=== PATIENT | female | born 1930 | race Caucasian/White ===

== ENCOUNTER 2017-04-02 10:37 | Inpatient (IN) | payer MEDICARE, OTHER ==
[~2017-04-02] VITALS: Ht 168.9 cm; Wt 45.8 kg
--- NOTE | 2017-04-02 15:35 | NUR ---
PT ADMITTED FROM [facility], VIA AMBULANCE, PT A/O X3, NO RESPIRATORY DISTRESS NOTED. NC AT 2L/MIN, RESPIRATIONS EVEN AND UNLABORED, PT WITH MULTIPLE BRUISING ON BILATERAL HANDS, LEFT AC REDNESS, SACRAL WOUND, PICTURES TAKEN. NO FAMILY AT BEDSIDE. FLU AND PNA VACCINE ON 01/25. F/C INTACT AND PATENT, KRISTIN YELLOW URINE. NASAL SWABS TAKEN.
[2017-04-02] MEDS ORDERED: METO-304 PO (16:29)
[2017-04-02] MEDS ORDERED: DIGO125T PO (16:29)
[2017-04-02] MEDS ORDERED: ATOR40TA PO (16:29)
[2017-04-02] MEDS ORDERED: VITA400C24 PO (16:29)
[2017-04-02] MEDS ORDERED: ASPI-612 PO (16:29)
[2017-04-02] MEDS ORDERED: ESTR1.5T5 PO (16:29)
[2017-04-02] MEDS ORDERED: CHOL10002 PO (16:29)
[2017-04-02] MEDS ORDERED: LEVO50TA8 PO (16:29)
[2017-04-02 16:52] VITALS: BP 109/48
--- NOTE | 2017-04-02 19:35 | NUR ---
Received pt sleeping comfortably in bed and easily arousable when called by name. AAO x3. On 2L O2 NC, tolerating well. No acute distress noted. No c/o pain or discomfort at this time. F/C noted, draining well with yellow colored urine, possible DC of F/C tomorrow as per Dr. Macias if pt does not need it. Safety measures maintained. Call light and personal belongings within reach. Will continue to monitor.
[2017-04-02 22:22] VITALS: BP 120/50
[2017-04-02] MEDS ORDERED: HYDROCODONE/APAP 5-325MG TABLET PO PRN (22:30)
[2017-04-02] MEDS ORDERED: HYDROCODONE/APAP 5-325MG TABLET ONE (23:09)
--- NOTE | 2017-04-03 05:46 | NUR ---
Pt slept comfortably t/o the night. C/o pain last night at the sacrum and was given [place]. Vital signs stable. On 2L O2 via NC. Safety measures maintained. Call light within reach. Will endorse to day shift RN. Continue to monitor.
--- NOTE | 2017-04-03 07:20 | NUR ---
RECEIVED REPORT FROM ECONOMIC SPECIALIST NURSE, PT RESTING COMFORTABLY IN BED, NO S/S OF PAIN, CALL LIGHT IN REACH, WILL CONTINUE TO MONITOR.
[2017-04-03 07:26] LABS: BASOPHILS # (AUTO) 0.1 K/uL (0.0-8.0); EOSINOPHILS # (AUTO) 0.1 K/uL (0.0-0.7); EOSINOPHILS % (AUTO) 1.2 % (0.0-7.0); HEMATOCRIT 26.8 % (37-47); HEMOGLOBIN 9.1 G/DL (12.0-16.0); LYMPHOCYTES # (AUTO) 0.8 K/UL (0.8-4.8); LYMPHOCYTES % (AUTO) 14.4 % (20.5-51.5); MEAN CORPUSCULAR HEMOGLOBIN 31.4 UUG (27.0-31.0); MEAN CORPUSCULAR HGB CONC 34 g/dL (32.0-37.0); MEAN CORPUSCULAR VOLUME 92.7 FL (81.0-99.0); MONOCYTES # (AUTO) 0.6 K/UL (0.1-1.30); NEUTROPHILS % (AUTO) 72.4 % (38.5-71.5); PLATELET COUNT (AUTO) 73 K/UL (150-450); RED BLOOD CELL COUNT(AUTO) 2.89 MIL/UL (4.2-5.4); WHITE BLOOD COUNT (AUTO) 5.6 K/UL (4.0-11.2)
[2017-04-03 07:41] LABS: DIGOXIN 1.5 ng/mL (0.9-2.0)
[2017-04-03 07:46] VITALS: BP 150/63
[2017-04-03 07:47] LABS: THYROID STIMULATING HORMONE 3.118 mIU/mL (0.358-3.740)
[2017-04-03 07:53] LABS: IRON, SERUM 32 ug/dL (50-175)
[2017-04-03 08:19] LABS: BAND % (MANUAL) 1 % (0-10); EOSINOPHILS % (MANUAL) 1 % (0-8); LYMPHOCYTES % (MANUAL) 16 % (20-40); MONOCYTES % (MANUAL) 11 % (2-10); NEUTROPHILS % (MANUAL) 71 % (42-75)
[2017-04-03 08:21] LABS: ALANINE AMINOTRANSFERASE 32 U/L (14-59); ALKALINE PHOSPHATASE 71 U/L (50-136); ASPARTATE AMINOTRANSFERASE 44 U/L (15-37); BILIRUBIN,TOTAL 1.3 mg/dL (0.2-1.0); CARBON DIOXIDE 28 mmol/L (21-32); CHLORIDE 104 mmol/L (98-107); CHOLESTEROL 102 mg/dL (<200); CREATININE 0.6 mg/dL (0.6-1.3); GLUCOSE 83 mg/dL (74-106); HDL CHOLESTEROL 69 mg/dL (40-60); PHOSPHOROUS 2.4 mg/dL (2.5-4.9); POTASSIUM 4.4 mmol/L (3.5-5.1); TOTAL PROTEIN, SERUM 5.6 g/dL (6.4-8.2); TRIGLYCERIDES 45 MG/DL (30-150); UREA NITROGEN, BLOOD 15 mg/dL (7-18)
[2017-04-03] MEDS: DIGOXIN 125 MCG TABLET PO SCH (08:55)
[2017-04-03] MEDS: LEVOTHYROXINE SODIUM 50 MCG TABLET PO SCH (08:55)
[2017-04-03] MEDS ORDERED: ASPIRIN 325 MG TABLET PO SCH (09:00)
--- NOTE | 2017-04-03 13:30 | NUR ---
PT RESTING COMFORTABLYM, NO C/O PAIN NO DISTRESS, CALL LIGHT IN REACH, WILL CONTINUE TO MONITOR PT.
[2017-04-03] MEDS ORDERED: NEUTRA PHOS PACKET PO ONE (16:15)
--- NOTE | 2017-04-03 16:47 | NUR ---
PT BECAME ARGUMENTATIVE AND REFUSED THE PERCOCET5/325 AND NEUTRASPHOS, PT REFUSED BOTH MEDS, PT PREVIOUSLY ASKED FOR PAIN MEDS. eNC PT TO TAKE THE MEDS BUT PT REFUSED STILL
--- NOTE | 2017-04-03 18:36 | NUR ---
PT RESTING IN BED, ASKED ABOUT HER VITAMINS, INFORMED HER SHE WOULD GET HER VITAMINS AT 2100 AND PAIN MEDS PRN, CALL LIGHT IN REACH, WILL ENDORSE TO MAP MOUNTER NURSE.
[2017-04-03] MEDS: OXYCODONE/APAP 5-325 MG TABLET PO PRN (19:34)
--- NOTE | 2017-04-03 20:00 | NUR ---
Received pt resting in bed and watching TV. AAO x3. C/o pain 6/10 on her sacrum. Will follow through with interventions. Dr. Colon and Dr. Macias talked to the patient. Dr. Macias ordered for tomlin catheter to be D/C tomorrow in morning shift. Will endorse to day shift RN. Pt on 2L O2 NC, tolerating well. No acute distress noted. Safety measures maintained. Call light within reach. Will continue to monitor.
[2017-04-03] MEDS ORDERED: ATORVASTATIN 40 MG TABLET PO SCH (21:00)
[2017-04-03 21:18] VITALS: BP 137/56
[2017-04-03] MEDS: CHOLECALCIFEROL 1,000 UNIT TABLET PO SCH (21:36)
[2017-04-03] MEDS: DOCUSATE SODIUM 100 MG CAPSULE PO SCH (21:36)
[2017-04-03] MEDS: VITAMIN E 400 UNITS CAPSULE PO SCH (21:36)
[2017-04-03] MEDS ORDERED: DOCUSATE SODIUM 100 MG CAPSULE PO ONE (21:38)
--- NOTE | 2017-04-04 05:38 | NUR ---
Pt slept comfortably t/o the night. On 2L O2 via NC. Cote catheter intact and draining well, to be discontinued today for morning shift. All needs attended to promptly. Safety measures maintained. Call light and personal belongings within reach. Will endorse to day shift RN. Continue to monitor.
[2017-04-04] MEDS: LEVOTHYROXINE SODIUM 50 MCG TABLET PO SCH (06:42)
--- NOTE | 2017-04-04 08:20 | NUR ---
PATIENT NOTED LYING IN BED WATCHING TV, COMPLAINTS OF PAIN 5/10, NO SIGNS OF DISTRESS NOTED, CALL LIGHT IN REACH, BED LOCKED AND IN LOWEST POSITION
[2017-04-04] MEDS: DIGOXIN 125 MCG TABLET PO SCH (08:57)
[2017-04-04] MEDS: OXYCODONE/APAP 5-325 MG TABLET PO PRN ×2 (08:59→21:02)
[2017-04-04 09:02] VITALS: BP 147/71
--- NOTE | 2017-04-04 11:00 | NUR ---
REAGAN CATHETER DISCONTINUED
--- NOTE | 2017-04-04 19:53 | NUR ---
MINIMAL URINE OUTPUT NOTED FROM PATIENT DURING SHIFT, DOCTOR NOBLE NOTIFIED WITH ORDERS FOR 1)BLADDER SCAN 2) IN AND OUT CATHETERIZATION STAT 3) FLOMAX 0.4 MG QHS. BLADDER SCAN SHOWED 523 ML, IN AND OUT CATHETERIZATION PERFORMED WITH 550 ML OF CLEAR STRAW COLORED URINE
[2017-04-04] MEDS ORDERED: TAMSULOSIN HCL 0.4 MG CAP.SR.24H ONE (20:19)
[2017-04-04 20:36] VITALS: BP 151/62
[2017-04-04] MEDS: TAMSULOSIN HCL 0.4 MG CAP.SR.24H PO SCH (21:00)
[2017-04-04] MEDS: VITAMIN E 400 UNITS CAPSULE PO SCH (21:00)
[2017-04-04] MEDS: FERROUS GLUCONATE 324 MG TABLET PO SCH (21:00)
[2017-04-04] MEDS: CHOLECALCIFEROL 1,000 UNIT TABLET PO SCH (21:01)
[2017-04-04] MEDS: DOCUSATE SODIUM 100 MG CAPSULE PO SCH (21:01)
[2017-04-04] MEDS: ATORVASTATIN 10 MG TABLET PO SCH (22:04)
[2017-04-04] MEDS ORDERED: ATORVASTATIN 10 MG TABLET ONE (22:16)
[2017-04-05] MEDS: LEVOTHYROXINE SODIUM 50 MCG TABLET PO SCH (07:01)
[2017-04-05 07:20] VITALS: BP 119/56
[2017-04-05] MEDS: OXYCODONE/APAP 5-325 MG TABLET PO PRN ×2 (07:44→22:01)
[2017-04-05] MEDS: FERROUS GLUCONATE 324 MG TABLET PO SCH ×2 (09:26→22:01)
[2017-04-05] MEDS: DIGOXIN 125 MCG TABLET PO SCH (09:26)
[2017-04-05] MEDS: FUROSEMIDE 20 MG TABLET PO SCH (09:26)
[2017-04-05] MEDS: MIRALAX 17 GM POWD.PACK PO SCH (09:27)
--- NOTE | 2017-04-05 11:30 | NUR ---
Pt. walking around unit with P.T. on R/A resting intermittently. Pt. c/o of sob at the end of walk 02 at 85%. 2L 02 applied with 02 saturation at 96% and patient with no complaints of sob. Pt walking to bathroom on R/A with O.T. and tolerating limited ADLs before complaining of nausea and had an emesis as well as episode of weakness. Pt. returned to [facility] and 2 l 02 applied. VS: bp- 109/46, hr- 82, 02 sat 92 %. PT. states that she thinks the emesis is from the pain pill she took earlier. All needs attened and pt. returned to bed. Pt. resting. Continue to monitor.
[2017-04-05 12:00] VITALS: BP 111/47
--- NOTE | 2017-04-05 16:16 | NUR ---
Pt. complained earlier in the shift about having postnasal drainage and difficulty chewing due to her underbite and also some coughing up food particle at times. Discussed food texture change. Pt. resting in bed and repositioned with 1 pers assist. Dressing to coccyx changed. Pt. assisted to bathroom with 1 pers assist. No acute distress noted.
[2017-04-05 20:36] VITALS: BP 131/55
[2017-04-05] MEDS: VITAMIN E 400 UNITS CAPSULE PO SCH (22:01)
[2017-04-05] MEDS: TAMSULOSIN HCL 0.4 MG CAP.SR.24H PO SCH (22:02)
[2017-04-05] MEDS: ATORVASTATIN 10 MG TABLET PO SCH (22:02)
[2017-04-05] MEDS: CHOLECALCIFEROL 1,000 UNIT TABLET PO SCH (22:02)
[2017-04-05] MEDS: DOCUSATE SODIUM 100 MG CAPSULE PO SCH (22:02)
[2017-04-06] MEDS: OXYCODONE/APAP 5-325 MG TABLET PO PRN (05:02)
[2017-04-06] MEDS: LEVOTHYROXINE SODIUM 50 MCG TABLET PO SCH (05:02)
--- NOTE | 2017-04-06 07:41 | NUR ---
PATIENT NOTED RESTING IN BED WITH EYES CLOSED, NO COMPLAINTS OF PAIN AT THIS TIME, NO SIGNS OF DISTRESS NOTED, CALL LIGHT IN REACH, BED LOCKED AND IN LOWEST POSITION, ALL NEEDS MET AT THIS TIME
[2017-04-06 08:29] LABS: BASOPHILS # (AUTO) 0.1 K/uL (0.0-8.0); EOSINOPHILS % (AUTO) 1.1 % (0.0-7.0); HEMATOCRIT 23.5 % (31.2-41.9); LYMPHOCYTES # (AUTO) 0.6 K/uL (20.0-40.0); LYMPHOCYTES % (AUTO) 14.6 % (20.5-51.5); MEAN CORPUSCULAR HEMOGLOBIN 31.4 uug (24.7-32.8); MEAN CORPUSCULAR HGB CONC 34 g/dL (32.3-35.6); MONOCYTES # (AUTO) 0.6 K/uL (2.0-10.0); MONOCYTES % (AUTO) 13.3 % (0.0-11.0); PLATELET COUNT (AUTO) 84 K/uL (179-408); RED BLOOD CELL COUNT(AUTO) 2.56 MIL/uL (3.63-4.92); WHITE BLOOD COUNT (AUTO) 4.3 K/uL (3.8-11.8)
[2017-04-06 08:50] LABS: ALANINE AMINOTRANSFERASE 34 U/L (14-59); ALKALINE PHOSPHATASE 82 U/L (50-136); ASPARTATE AMINOTRANSFERASE 45 U/L (15-37); BILIRUBIN,TOTAL 0.8 mg/dL (0.2-1.0); CARBON DIOXIDE 30 mmol/L (21-32); CHLORIDE 103 mmol/L (98-107); CREATININE 0.8 mg/dL (0.6-1.3); GLUCOSE 92 mg/dL (74-106); MAGNESIUM 1.9 mg/dL (1.8-2.4); PHOSPHOROUS 2.5 mg/dL (2.5-4.9); POTASSIUM 4.4 mmol/L (3.5-5.1); TOTAL PROTEIN, SERUM 5.3 g/dL (6.4-8.2); UREA NITROGEN, BLOOD 16 mg/dL (7-18)
[2017-04-06] MEDS: FUROSEMIDE 20 MG TABLET PO SCH (09:12)
[2017-04-06] MEDS: DIGOXIN 125 MCG TABLET PO SCH (09:13)
[2017-04-06] MEDS: MIRALAX 17 GM POWD.PACK PO SCH (09:13)
[2017-04-06] MEDS: FERROUS GLUCONATE 324 MG TABLET PO SCH ×2 (09:13→20:59)
[2017-04-06 10:48] LABS: BAND % (MANUAL) 6 % (0-10); BASOPHILS % (MANUAL) 1 % (0-2); LYMPHOCYTES % (MANUAL) 13 % (20-40); MONOCYTES % (MANUAL) 12 % (2-10); NEUTROPHILS % (MANUAL) 68 % (42-75)
--- NOTE | 2017-04-06 14:54 | NUR ---
WOUND CARE CONSULT: PT SEEN FOR SACRAL AREA WHICH IS HEALED BUT VERY BONY. NURSES PROTECTING AREA WITH MEPILEX. OFFLOAD. DISCUSSED SKIN PROTECTION WITH NURSING STAFF. WILL SEE PRN. HANNAH IN AGREEMENT WITH PLAN OF CARE. Addendum: 04/06/17 at 1459 by YOANNA WADDELL RN CURRENT KESHA SCORE IS 17.
[2017-04-06] MEDS ORDERED: Z GUARD REMEDY PASTE 57 GM TUBE TOP PRN (15:00)
[2017-04-06] MEDS ORDERED: MAGNESIUM CITRATE 296 ML BOTTLE PO ONE (16:45)
[2017-04-06] MEDS ORDERED: GLYCERIN ADULT RECTAL SUPP EACH RC ONE (18:00)
[2017-04-06 19:30] VITALS: BP 128/64
--- NOTE | 2017-04-06 19:35 | NUR ---
Pt. received lying on bed, awake, and still complaining about her urge to have bowel movement. Per AM shift nurse, Magnesium citrate already given and I will have to give the Glycerin suppository after. I informed and explained to the patient that I will be giving another medication for her constipation. Vital signs are as follows : T 98, P 82, R 18, Pulse sat 94% on 2LPM, BP 128/64. No acute signs of distress noted. Call light placed within her reach.
--- NOTE | 2017-04-06 20:05 | NUR ---
Explained to the patient the Glycerin suppository of how I will give it to her, she seemed anxious. Per patient "I've never had that kind of medication before." Assured the patient that I will do the procedure gently and that I will be explaining it to her every step so she will feel comfortable. 2008 Glycerin supp given per rectum. Will monitor the patient.
--- NOTE | 2017-04-06 20:50 | NUR ---
Patient requested to go to the bathroom to make a bowel movement. Assisted patient via walker. Patient seated in the toilet for 15minutes, stayed beside the patient and kept reminding the pt. to not strain. Pt. able to remove her hard-formed stools. Pt. returned to the bed smiling. Per patient "I never felt so much better! It is such a relief to be able to have a bowel movement." Pt. appreciated the help saying "Thank you. I can now have a goo sleep". Safety measures provided. Bed on low position. Call light in reach. Will monitor the pt.
[2017-04-06] MEDS: TAMSULOSIN HCL 0.4 MG CAP.SR.24H PO SCH (20:59)
[2017-04-06] MEDS: CHOLECALCIFEROL 1,000 UNIT TABLET PO SCH (20:59)
[2017-04-06] MEDS: ATORVASTATIN 10 MG TABLET PO SCH (20:59)
[2017-04-06] MEDS: DOCUSATE SODIUM 100 MG CAPSULE PO SCH (21:21)
[2017-04-06] MEDS: VITAMIN E 400 UNITS CAPSULE PO SCH (21:29)
--- NOTE | 2017-04-07 06:42 | NUR ---
pt. able to rest throughout the night. Per patient " I slept well because I don't have to worry about my constipation." Kept clean, dry and comfortable. Able to have BM twice in our shift. All due meds given. Will endorse to AM shift nurse.
[2017-04-07 08:25] VITALS: BP 147/49
[2017-04-07] MEDS: FERROUS GLUCONATE 324 MG TABLET PO SCH ×2 (08:36→20:46)
[2017-04-07] MEDS: LEVOTHYROXINE SODIUM 50 MCG TABLET PO SCH (08:37)
[2017-04-07] MEDS: MIRALAX 17 GM POWD.PACK PO SCH (08:37)
[2017-04-07] MEDS: FUROSEMIDE 20 MG TABLET PO SCH (08:39)
[2017-04-07] MEDS: DIGOXIN 125 MCG TABLET PO SCH (08:44)
--- NOTE | 2017-04-07 11:39 | NUR ---
SBAR report received near bedside, board updated. Pt awake, alert, and oriented x4. Pt assessed, no SOB or acute distress noted, reported sleeping well last night. Pt states no pain this morning. Pt compliant with all routine PO medication administration, refusing Lasix. All safety and comfort needs met. Today's plan of care discussed, including times of therapies. Pt had a small bowel movement just prior to ambulating with PT, soft, brown, and evacuated with ease. Call light and personal items within reach. Will continue to monitor Pt.
--- NOTE | 2017-04-07 14:13 | NUR ---
I agree Addendum: 04/07/17 at 1416 by DARIEN FARRIS OT Amended: Links added.
--- NOTE | 2017-04-07 18:35 | NUR ---
Pt sitting up in semi-fowlers comfortably in bed. Pt denies any SOB and pain at this time. V/S remain WNL. Pt compliant with all routine medication administrations this shift. Pt is clean, dry, and repositioned. All safety and comfort measures met at this time. Call light and personal items within reach. Will continue to monitor and endorse to on coming manufacturing shift supervisor.
--- NOTE | 2017-04-07 19:40 | NUR ---
Received pt in bed, appearing to be asleep but easily arousable to verbal stimuli. Verbally responsive and able to make needs known. No acute distress noted. Denies pain or discomfort at this time. O2 2L/min NC noted, saturation of 93%. No SOB noted. All safety measures and fall precautions maintained. Call light within reach. Will continue to monitor.
[2017-04-07] MEDS: DOCUSATE SODIUM 100 MG CAPSULE PO SCH (20:46)
[2017-04-07] MEDS: TAMSULOSIN HCL 0.4 MG CAP.SR.24H PO SCH (20:46)
[2017-04-07] MEDS: CHOLECALCIFEROL 1,000 UNIT TABLET PO SCH (20:46)
[2017-04-07] MEDS: ATORVASTATIN 10 MG TABLET PO SCH (20:47)
[2017-04-07] MEDS: VITAMIN E 400 UNITS CAPSULE PO SCH (20:47)
[2017-04-07 21:04] VITALS: BP 129/57
--- NOTE | 2017-04-08 06:16 | NUR ---
Pt slept comfortably throughout the shift. No acute distress noted. No complaints of pain or discomfort. Waking intermittently to use the restroom. Assisted to restroom. All due medications given and well tolerated. Kept clean and dry. All needs well attended to and met promptly. All safety measures and fall precautions maintained. Call light within reach. Will continue to monitor. Will endorse to AM shift.
[2017-04-08] MEDS: LEVOTHYROXINE SODIUM 50 MCG TABLET PO SCH (06:49)
--- NOTE | 2017-04-08 07:18 | NUR ---
Received patient awake, alert and oriented on a high abdalla's position, able to verbalize needs. All needs were attended and anticipated. No display of SOB or any distress. patient denies any pain at this time. Patient was encouraged to use call light whenever assistance is needed. Will continue to monitor.
[2017-04-08 07:49] VITALS: BP 154/61
[2017-04-08] MEDS: DIGOXIN 125 MCG TABLET PO SCH (09:01)
[2017-04-08] MEDS: FERROUS GLUCONATE 324 MG TABLET PO SCH ×2 (09:01→20:49)
[2017-04-08] MEDS: FUROSEMIDE 20 MG TABLET PO SCH (09:01)
[2017-04-08] MEDS: MIRALAX 17 GM POWD.PACK PO SCH (09:02)
--- NOTE | 2017-04-08 10:45 | NUR ---
Patient noted ambulating with the PT without difficulty. Will continue to monitor.
--- NOTE | 2017-04-08 15:01 | NUR ---
Interdisciplinary Team Conference
--- NOTE | 2017-04-08 19:00 | NUR ---
Patient awake, alert and oriented able to verbalize needs, remained stable throughout the shift. On oxygen at 2L/min via NC. No SOB, distress or any discomforts noted. all needs were attended and anticipated. call light placed within reach. Will endorse to incoming shift.
[2017-04-08] MEDS: TAMSULOSIN HCL 0.4 MG CAP.SR.24H PO SCH (20:48)
[2017-04-08] MEDS: ATORVASTATIN 10 MG TABLET PO SCH (20:49)
[2017-04-08] MEDS: DOCUSATE SODIUM 100 MG CAPSULE PO SCH (20:49)
[2017-04-08] MEDS: CHOLECALCIFEROL 1,000 UNIT TABLET PO SCH (20:49)
[2017-04-08] MEDS: VITAMIN E 400 UNITS CAPSULE PO SCH (20:52)
[2017-04-08 20:59] VITALS: BP 139/47
[2017-04-08] MEDS: OXYCODONE/APAP 5-325 MG TABLET PO PRN (21:24)
[2017-04-09] MEDS: LEVOTHYROXINE SODIUM 50 MCG TABLET PO SCH (06:48)
[2017-04-09] MEDS: FUROSEMIDE 20 MG TABLET PO SCH (08:57)
[2017-04-09] MEDS: DIGOXIN 125 MCG TABLET PO SCH (09:00)
[2017-04-09] MEDS: MIRALAX 17 GM POWD.PACK PO SCH (09:01)
[2017-04-09] MEDS: FERROUS GLUCONATE 324 MG TABLET PO SCH ×2 (09:01→21:17)
[2017-04-09 09:53] VITALS: BP 160/59
--- NOTE | 2017-04-09 14:45 | NUR ---
I agree Addendum: 04/09/17 at 1446 by DARIEN FARRIS OT Amended: Links added.
[2017-04-09 20:05] VITALS: BP 140/63
[2017-04-09] MEDS: VITAMIN E 400 UNITS CAPSULE PO SCH (21:00)
[2017-04-09] MEDS: CHOLECALCIFEROL 1,000 UNIT TABLET PO SCH (21:17)
[2017-04-09] MEDS: ATORVASTATIN 10 MG TABLET PO SCH (21:55)
[2017-04-09] MEDS: OXYCODONE/APAP 5-325 MG TABLET PO PRN (21:57)
[2017-04-09] MEDS: DOCUSATE SODIUM 100 MG CAPSULE PO SCH (21:57)
[2017-04-09] MEDS: TAMSULOSIN HCL 0.4 MG CAP.SR.24H PO SCH (21:57)
--- NOTE | 2017-04-10 00:15 | NUR ---
Received report from JONNIE Stout. Seen pt on rounding. No acute distress noted. Denies pain during this time. No SOB noted. Call light within reach. Safety and fall precautions observed and maintained. Will continue to monitor.
--- NOTE | 2017-04-10 05:41 | NUR ---
Pt slept comfortably throughout the shift. No acute distress noted. No complaints of pain. Assisted to the bathroom x1, tolerated well. Call light within reach. All needs anticipated.
[2017-04-10] MEDS: LEVOTHYROXINE SODIUM 50 MCG TABLET PO SCH (06:33)
[2017-04-10 07:36] VITALS: BP 126/58
[2017-04-10] MEDS: FERROUS GLUCONATE 324 MG TABLET PO SCH ×2 (08:56→21:45)
[2017-04-10] MEDS: MIRALAX 17 GM POWD.PACK PO SCH (08:57)
[2017-04-10] MEDS: FUROSEMIDE 20 MG TABLET PO SCH (09:00)
[2017-04-10] MEDS: DIGOXIN 125 MCG TABLET PO SCH (09:02)
--- NOTE | 2017-04-10 11:35 | NUR ---
SBAR report received by bedside, board updated. Pt assessed, alert, oriented x4,Pt denies any c/o pain and no SOB at this time. Pt breathings with ease on 2 L O2 NC. Pt compliant with routine morning medications, refusing Lasix due to annoyance with excessive urination and requesting to speak to MD to discuss the matter further. Pt able to make needs known. All safety and comfort measures met at this time. Call light and personal items within reach. Will continue to monitor.
--- NOTE | 2017-04-10 13:50 | NUR ---
I AGREE TO TREATMENT PROVIDED Addendum: 04/14/17 at 1353 by CJ BALTAZAR PT Amended: Links added.
--- NOTE | 2017-04-10 13:53 | NUR ---
I AGREE TO TREATMENT PROVIDED Addendum: 04/14/17 at 1356 by CJ BALTAZAR PT Amended: Links added.
--- NOTE | 2017-04-10 13:56 | NUR ---
I AGREE TO TREATMENT PROVIDED Addendum: 04/14/17 at 1357 by CJ BALTAZAR PT Amended: Links added.
--- NOTE | 2017-04-10 13:57 | NUR ---
I AGREE TO TREATMENT PROVIDED Addendum: 04/14/17 at 1358 by CJ BALTAZAR PT Amended: Links added.
--- NOTE | 2017-04-10 19:09 | NUR ---
Pt has remained stable all shift, with no changes. Will endorse to nursing information systems coordinator.
--- NOTE | 2017-04-10 19:40 | NUR ---
Seen patient during rounds, in bed, awake,alert and verbally responsive. Vital signs WNL BP 116/52, T 98.2, P 76, R 19, O2 sat @ 98% on 2LPM. No signs of acute distress noted. Assisted patient in going to the bathroom with her wheelchair. Voided but no BM. Safety measures provided to the patient. Bed on low position. Call light within her reach. Will monitor the patient.
[2017-04-10] MEDS: DOCUSATE SODIUM 100 MG CAPSULE PO SCH (21:45)
[2017-04-10] MEDS: CHOLECALCIFEROL 1,000 UNIT TABLET PO SCH (21:45)
[2017-04-10] MEDS: TAMSULOSIN HCL 0.4 MG CAP.SR.24H PO SCH (21:45)
[2017-04-10] MEDS: ATORVASTATIN 10 MG TABLET PO SCH (21:45)
[2017-04-10] MEDS: VITAMIN E 400 UNITS CAPSULE PO SCH (21:45)
[2017-04-10 21:49] VITALS: BP 116/52
--- NOTE | 2017-04-11 05:48 | NUR ---
pt. able to rest throughout the night. Kept clean, dry and comfortable. All due meds. given. Will endorse to AM shift nurse.
[2017-04-11] MEDS: LEVOTHYROXINE SODIUM 50 MCG TABLET PO SCH (06:28)
[2017-04-11 07:30] VITALS: BP 126/55
[2017-04-11] MEDS: FUROSEMIDE 20 MG TABLET PO SCH (09:00)
[2017-04-11] MEDS: MIRALAX 17 GM POWD.PACK PO SCH (09:49)
[2017-04-11] MEDS: FERROUS GLUCONATE 324 MG TABLET PO SCH ×2 (09:56→21:17)
[2017-04-11] MEDS: DIGOXIN 125 MCG TABLET PO SCH (10:05)
--- NOTE | 2017-04-11 10:19 | NUR ---
Pt SBAR report received, board updated. Pt assessed, denies pain but expresses concern over excessive urination due to Lasix during hospitalization. Pt compliant with all other morning medication administration, apical pulse 72 taken, Digoxin administered. All comfort and safety measures met. Personal items and call light within reach. Will continue to monitor.
--- NOTE | 2017-04-11 19:23 | NUR ---
Pt has remained stable all shift, no changes, no new orders. BMx1. Will continue to monitor and endorse mixed signal design engineer.
--- NOTE | 2017-04-11 19:30 | NUR ---
Received patient lying in bed, no s/s of acute distress. Respirations even and unlabored. Call light within reach. Encouraged to call for help when necessary. Will continue to monitor.
[2017-04-11 21:13] VITALS: BP 158/78
[2017-04-11] MEDS: ATORVASTATIN 10 MG TABLET PO SCH (21:16)
[2017-04-11] MEDS: CHOLECALCIFEROL 1,000 UNIT TABLET PO SCH (21:16)
[2017-04-11] MEDS: TAMSULOSIN HCL 0.4 MG CAP.SR.24H PO SCH (21:17)
[2017-04-11] MEDS: DOCUSATE SODIUM 100 MG CAPSULE PO SCH (21:17)
[2017-04-11] MEDS: VITAMIN E 400 UNITS CAPSULE PO SCH (21:18)
[2017-04-11] MEDS: OXYCODONE/APAP 5-325 MG TABLET PO PRN (21:32)
[2017-04-12] MEDS: LEVOTHYROXINE SODIUM 50 MCG TABLET PO SCH (07:19)
--- NOTE | 2017-04-12 07:19 | NUR ---
Patient awake in bed, no s/s of acute distress. Pain interventions given. Slept well. Comfort and safety measures in place. Needs attended. Frequent checks done. Call light kept within reach. Endorsed accordingly.
[2017-04-12 07:45] VITALS: BP 145/61
[2017-04-12] MEDS: MIRALAX 17 GM POWD.PACK PO SCH (08:24)
[2017-04-12] MEDS: FERROUS GLUCONATE 324 MG TABLET PO SCH ×2 (08:30→20:06)
[2017-04-12] MEDS: DIGOXIN 125 MCG TABLET PO SCH (08:30)
[2017-04-12] MEDS: FUROSEMIDE 20 MG TABLET PO SCH (08:39)
--- NOTE | 2017-04-12 11:17 | NUR ---
SBAR report received near bedside, board updated. Pt assessed, no SOB on RA, no c/o pain, and reports having slept well throughout the night. Pt refused Lasix again today requesting to speak to MD for further clarification as to reason med is being prescribed. Pt compliant with all other routinely scheduled medications this morning. Apical pulse taken, 71, Digoxin administered. All comfort and safety measures met. Pt able to make needs known. Personal items and call light within reach. Will continue to monitor.
--- NOTE | 2017-04-12 18:48 | NUR ---
Pt has remained stable with no changes throughout the shift. All comfort and safety measures met. Call light within reach. BMx1, will endorse to slot shift supervisor.
--- NOTE | 2017-04-12 19:30 | NUR ---
Patient awake in bed, no s/s of acute distress. Comfort and safety measures in place. Call light kept within reach.
[2017-04-12] MEDS: VITAMIN E 400 UNITS CAPSULE PO SCH (20:06)
[2017-04-12] MEDS: DOCUSATE SODIUM 100 MG CAPSULE PO SCH (20:06)
[2017-04-12] MEDS: TAMSULOSIN HCL 0.4 MG CAP.SR.24H PO SCH (20:06)
[2017-04-12] MEDS: ATORVASTATIN 10 MG TABLET PO SCH (20:06)
[2017-04-12] MEDS: CHOLECALCIFEROL 1,000 UNIT TABLET PO SCH (20:06)
[2017-04-12 20:22] VITALS: BP 135/52
[2017-04-12] MEDS: OXYCODONE/APAP 5-325 MG TABLET PO PRN (20:38)
--- NOTE | 2017-04-13 05:59 | NUR ---
Pt has remained stable all shift, no changes, no new orders. Will continue to monitor and endorse DAY shift
[2017-04-13] MEDS: LEVOTHYROXINE SODIUM 50 MCG TABLET PO SCH (06:30)
[2017-04-13 07:08] VITALS: BP 155/79
[2017-04-13 07:10] VITALS: BP 154/65
[2017-04-13] MEDS: DIGOXIN 125 MCG TABLET PO SCH (08:43)
[2017-04-13] MEDS: FERROUS GLUCONATE 324 MG TABLET PO SCH ×2 (08:43→20:27)
[2017-04-13] MEDS: FUROSEMIDE 20 MG TABLET PO SCH (08:43)
[2017-04-13] MEDS: MIRALAX 17 GM POWD.PACK PO SCH (08:43)
[2017-04-13 19:30] VITALS: BP 129/65
--- NOTE | 2017-04-13 19:30 | NUR ---
RECEIVED PATIENT FROM DAY SHIFT NURSE. SHIFT REPORT AT BEDSIDE. PATIENT STABLE WITH NO SIGNS OF PAIN, SOB, OR ACUTE DISTRESS. A/O X4, RESTING COMFORTABLY IN BED. ON 2L O2 VIA NC. PERTINENT ASSESSMENTS DONE. CALL LIGHT PLACED WITHIN REACH OF PATIENT. WILL CONTINUE TO MONITOR PATIENT THROUGH SHIFT.
[2017-04-13] MEDS: TAMSULOSIN HCL 0.4 MG CAP.SR.24H PO SCH (20:27)
[2017-04-13] MEDS: ATORVASTATIN 10 MG TABLET PO SCH (20:27)
[2017-04-13] MEDS: DOCUSATE SODIUM 100 MG CAPSULE PO SCH (20:27)
[2017-04-13] MEDS: CHOLECALCIFEROL 1,000 UNIT TABLET PO SCH (20:27)
[2017-04-13] MEDS: VITAMIN E 400 UNITS CAPSULE PO SCH (21:08)
[2017-04-13] MEDS: OXYCODONE/APAP 5-325 MG TABLET PO PRN (21:09)
--- NOTE | 2017-04-14 06:26 | NUR ---
PATIENT SLEPT WELL THROUGH THE SHIFT. NO SIGNS OF PAIN, SOB, OR ACUTE DISTRESS. ON 2L O2 VIA NC. ABLE TO MAKE NEEDS KNOWN. SAFETY MEASURES IMPLEMENTED. ALL MEDICATIONS ADMINISTERED ORDERED PER MD. VITAL SIGNS STABLE THROUGH SHIFT. WILL ENDORSE TO DAY SHIFT NURSE.
[2017-04-14] MEDS: LEVOTHYROXINE SODIUM 50 MCG TABLET PO SCH (06:34)
[2017-04-14 07:09] VITALS: BP 122/74
--- NOTE | 2017-04-14 09:30 | NUR ---
I agree Addendum: 04/14/17 at 0930 by ISELA MOTA OT Amended: Links added.
[2017-04-14] MEDS: FERROUS GLUCONATE 324 MG TABLET PO SCH (09:41)
[2017-04-14] MEDS: MIRALAX 17 GM POWD.PACK PO SCH (09:41)
[2017-04-14] MEDS: DIGOXIN 125 MCG TABLET PO SCH (09:42)
[2017-04-14] MEDS: FUROSEMIDE 20 MG TABLET PO SCH (09:44)
== END 2017-04-14 18:15 | disposition home health service (06) | DRG 559 ==
PROVIDERS: ADMIT Physical Medicine & Rehabilitation Pain Medicine; ATTEND Physical Medicine & Rehabilitation Pain Medicine
DX: S32.10XD Unspecified fracture of sacrum, subsequent encounter for fracture with routine healing (principal); I50.33 Acute on chronic diastolic (congestive) heart failure; E43 Unspecified severe protein-calorie malnutrition; D68.59 Other primary thrombophilia; I27.20 Pulmonary hypertension, unspecified; I48.91 Unspecified atrial fibrillation; D63.8 Anemia in other chronic diseases classified elsewhere; J44.9 Chronic obstructive pulmonary disease, unspecified; I11.0 Hypertensive heart disease with heart failure; W19.XXXD Unspecified fall, subsequent encounter; E03.9 Hypothyroidism, unspecified; E78.5 Hyperlipidemia, unspecified; I25.10 Atherosclerotic heart disease of native coronary artery without angina pectoris; M19.90 Unspecified osteoarthritis, unspecified site; M51.16 Intervertebral disc disorders with radiculopathy, lumbar region; R29.6 Repeated falls; Z95.0 Presence of cardiac pacemaker; R26.9 Unspecified abnormalities of gait and mobility; D46.9 Myelodysplastic syndrome, unspecified; D50.9 Iron deficiency anemia, unspecified; K59.00 Constipation, unspecified; I08.0 Rheumatic disorders of both mitral and aortic valves; G89.29 Other chronic pain; Z85.72 Personal history of non-Hodgkin lymphomas; Z85.44 Personal history of malignant neoplasm of other female genital organs; M81.0 Age-related osteoporosis without current pathological fracture; Z82.49 Family history of ischemic heart disease and other diseases of the circulatory system; Z92.21 Personal history of antineoplastic chemotherapy; Z95.5 Presence of coronary angioplasty implant and graft; Z96.643 Presence of artificial hip joint, bilateral; M54.5 Low back pain; I25.2 Old myocardial infarction
CPT/HCPCS: 36415; 70030-TC; 71010; 82306; 83550; 83735; 84100; 84443; 85025; 92526; 92610; 94640; 97110; 97112; 97116; 97530; 97535; C1758